=== PATIENT | male | born 1960 | race Caucasian/White ===

== ENCOUNTER → 2021-01-15 13:19 | Outpatient (CLI) | payer OTHER, SELFPAY ==
--- NOTE | 2021-01-15 14:37 | DI.MRI.S_ITS ---
PROCEDURE: MR LUMBAR SPINE WO CON INDICATIONS: Low back pain TECHNIQUE: Noncontrast sagittal T1 spin echo and T2 fast echo, sagittal STIR, axial T1 and T2 fast spin echo through the lumbar spine. In cases with scoliosis, additional coronal T2 fast spin echo may be performed. COMPARISON: None. FINDINGS: Image quality: Excellent. Alignment and Curvature: No plain films are available for comparison, for numbering purposes. Thus, for the purposes of this examination, 5 lumbar vertebral bodies will be presumed, with a transitional element at L5, as denoted on the montage panel. This should be confirmed and correlated with plain films, prior to any lumbar spinal intervention. There is loss of normal lumbar lordosis. Bone Marrow: Marrow is of normal overall signal. No acute vertebral body compression fractures. Mild reactive signal within the endplates adjacent to the L3-L4 and L4-L5 intervertebral discs. Spinal Cord: Conus medullaris terminates at the upper T12 level. Visualized cord demonstrates normal signal and size. Paraspinous Soft Tissues: No paravertebral masses. T12-L1: Mild facet and ligamentum flavum hypertrophy. No significant canal, or foraminal stenosis. L1-L2: Mild facet and ligamentum flavum hypertrophy. Mild epidural lipomatosis. Mild canal stenosis. Mild bilateral foraminal stenosis. L2-L3: Mild disc height loss and desiccation. Mild facet and ligamentum flavum hypertrophy. Mild epidural lipomatosis. Mild canal stenosis. Mild bilateral foraminal stenosis. L3-L4: Mild disc height loss and desiccation. Mild diffuse disc bulge with superimposed left paracentral protrusion. Mild facet and ligamentum flavum hypertrophy. Mild epidural lipomatosis. Moderate canal stenosis. Moderate left greater than right subarticular foraminal stenosis bilaterally. Compression and posterior deviation of the left L4 nerve root within the lateral recess. L4-L5: Moderate disc height loss and desiccation. Mild diffuse disc bulge. Mild facet hypertrophy. Mild epidural lipomatosis. Mild canal stenosis. Moderate subarticular foraminal stenosis bilaterally. L5-S1: Somewhat rudimentary appearing disc. No significant canal, or foraminal stenosis. IMPRESSION: 1. Atypical numbering system as described above. Correlation with plain films for numbering purposes is recommended prior to any lumbar spinal intervention. 2. Multilevel degenerative disc and facet disease, as well as ligamentum flavum hypertrophy and epidural lipomatosis. 3. Multilevel canal stenoses, worst at L3-L4 where there is moderate canal stenosis. 4. Left lateral recess stenosis at L3-L4 associated with compression and posterior deviation of the left L4 nerve root. Recommend correlation with clinical symptoms to ascertain relevance of this finding. 5. Multilevel foraminal stenoses, worst at L3-L4 and L4-L5 where there are moderate foraminal stenoses. Dictated by: Miguel Palomo M.D. on 01/15/2021 at 15:01 Approved by: Miguel Palomo M.D. on 01/15/2021 at 15:06
== END ==
PROVIDERS: PCP Family Medicine; Referring Provider Physician Assistant; Visit Provider Physician Assistant
DX: M54.5 Low back pain (principal)
CPT/HCPCS: 72148

== ENCOUNTER → 2021-04-07 09:02 | Outpatient (CLI) | payer OTHER, SELFPAY ==
--- NOTE | 2021-04-07 | DI.ECHO.S_ITS ---
[facility] +---------+ : : [address] : : : : [id number] : : : : Phone: [phone]+ Echocardiogram Report + + :Name: GI NICOLAS Study Date: 04/07/2021 Height: 65 in : :[facility] ReadingLocation: Weight: 250 lb : : Gender: Male BSA: 2.2 m2 : :: 1960 Age: 60 yrs BP: 178/100 mmHg: :Reason For Study: RIGHT BUNDLE BRANCH BLOCK : :Ordering Physician: LIANG, : :BARBARA Performed By: Shari Malhotra : :Referring: BARBARA GODOY : + + Interpretation Summary 1) Mildly increased left ventricular thickness (concentric) with normal size, normal wall motion, and normal systolic function (EF 55-60%). 2) Mildly increased right ventricular size with normal function. 3) No significant valvular abnormalities. 4) Hypertension persent during the study (BP 178/100mmHg). 5) The aortic root is mildly dilated at 4.2cm. The ascending aorta is mildly enlarged at 4.0cm. 6) No prior Echo available for comparison. Procedure: A two-dimensional transthoracic echocardiogram with color flow and Doppler was performed. The study quality was technically adequate. There is no prior echocardiogram noted for this patient. The patient was in sinus rhythm with heart rates between 60-68 bpm during the exam. Left Ventricle: The left ventricle is normal in size. There is mild concentric left ventricular hypertrophy. The ejection fraction is estimated to be 55-60%. Left ventricular systolic function appears normal without focal wall motion abnormalities. Diastolic parameters suggest a relaxation abnormality of the left ventricle, consistent with probable normal filling pressures. Right Ventricle: The right ventricle is mildly dilated. The right ventricular systolic function is normal. Atria: The left atrium is moderately dilated. The right atrium is mildly dilated. There is no Doppler evidence for an interatrial shunt. Mitral Valve: The mitral valve leaflets appear mildly thickened, but open well. There is mild mitral annular calcification. There is trace mitral regurgitation. Aortic Valve: The aortic valve is trileaflet. The aortic valve opens well. There is no aortic valve stenosis. No aortic regurgitation is present. Tricuspid Valve: The tricuspid valve is normal in structure and function. Pulmonary artery pressures cannot be estimated because of the lack of a measurable TR jet velocity but the IVC suggests a CVP of around 3 mmHg. There is trace tricuspid regurgitation. Pulmonic Valve: The pulmonic valve is not well seen, but is grossly normal. There is trace pulmonic regurgitation. Great Vessels: The aortic root is mildly dilated. The ascending aorta is mildly enlarged. The IVC is of normal diameter and collapses greater than 50% with a sniff. This suggests a low right atrial pressure of 3 mm Hg. Pericardium/ Pleura There is no pericardial effusion. There is no pleural effusion. MMode/2D Measurements & Calculations LVIDd: 5.6 cm LVOT diam: 2.0 cm LVIDs: 3.6 cm Ao root diam: 4.2 cm FS: 36.2 % asc Aorta Diam: 4.0 cm IVSd: 1.1 cm Ao Arch Diam (Prox Trans): 3.4 cm LVPWd: 1.0 cm LV de [place] paz. diameter/BSA (cm/m^2): 2.6 LV sys. diameter/BSA (cm/m^2): 1.6 LA A2 area: 27.9 cm2 RA long axis: 6.2 cm LA A4 area: 23.4 cm2 RA area: 23.1 cm2 LA length (vol): 5.9 cm RA vol: 73.6 ml LA vol: 93.6 ml RA : 33.9 ml/m2 LA vol index: 43.0 ml/m2 IVC diam: 1.9 cm RVD1 (basal): 4.5 cm TAPSE: 2.6 cm Doppler Measurements & Calculations Ao V2 max: 176.8 cm/sec LVOT Max Franck: 133.7 cm/sec Ao V2 mean: 119.1 cm/sec LV V1 max P.1 mmHg Ao max P.5 mmHg LV V1 VTI: 29.1 cm Ao mean P.5 mmHg MARTHA(I,D): 3.0 cm2 Ao V2 VTI: 31.3 cm MARTHA(V,D): 2.4 cm2 sev ratio: 0.93 MARTHA indexed to BSA (cm^2/m^2): 1.4 MV E max franck: 79.0 cm/sec PA V2 max: 131.2 cm/sec MV A max franck: 79.4 cm/sec PA V2 mean: 93.5 cm/sec MV E/A: 0.99 PA mean P.9 mmHg Med Peak E' Franck: 7.8 cm/sec PA pr(Accel): 29.3 mmHg E/E' med: 10.2 Lat Peak E' Franck: 12.5 cm/sec E/E' lat: 6.3 E/e' average: 8.2 MV dec time: 0.28 sec SV(OT): 92.6 ml Reading Physician:03:37 PM
== END ==
PROVIDERS: PCP Family Medicine; Referring Provider Internal Medicine Cardiovascular Disease; Visit Provider Internal Medicine Cardiovascular Disease
DX: I45.10 Unspecified right bundle-branch block (principal); R01.1 Cardiac murmur, unspecified; I77.810 Thoracic aortic ectasia
CPT/HCPCS: 93306